=== PATIENT | male | born 1955 | race Caucasian/White ===

== ENCOUNTER 2017-06-05 21:00 | Emergency (ER) | payer BC, MEDICARE ==
[~2017-06-05] VITALS: Ht 177.8 cm; Wt 76.2 kg
[~2017-06-05 21:00] MED LIST: ISENTRESS400 MG ORAL; NORVIR100 MG ORAL; PREZISTA400 MG ORAL; SELZENTRY150 MG ORAL
[2017-06-05 21:05] VITALS: BP 125/73
--- NOTE | 2017-06-05 21:12 | Emergency Room Report ---
History of Present Illness General Chief Complaint: Overdose Source: Patient, Medical Record, EMS Present Illness HPI 70-year-old male, history of HIV, on treatment, unknown last CD4 count, brought by EMS for suicide attempt with Lunesta. Someone called 911, unknown, EMS found patient at home very drowsy. Patient is very drowsy and lethargic however admits to taking 50 Lunesta pills. Unknown number of milligrams, but possibly 1 mg. Patient denies taking any other drugs. There was a suicide note was found, but stated that patient's dog today and that he wanted to join the dog. Currently patient is extremely lethargic, however he is oriented to person and place. Admits to taking the Lunesta pills. However cannot give any more history. He does state that he does not want to live anymore Allergies: Coded Allergies: No Known Allergies (Verified , 05/24/07) Patient History Past Medical History: see triage record Past Surgical History: none Pertinent Family History: none Reviewed Nursing Documentation: PMH: Agreed, PSxH: Agreed Review of Systems All Other Systems: negative except mentioned in HPI Physical Exam Vital Signs Date Time Temp Pulse Resp B/P (MAP) Pulse Ox O2 Delivery O2 Flow Rate FiO2 06/05/17 20:56 97.5 78 16 118/71 98 Room Air 97.5 Sp02 EP Interpretation: reviewed, normal General Appearance: other - Very drowsy middle aged male Head: normocephalic, atraumatic Eyes: bilateral eye normal inspection, bilateral eye PERRL, bilateral eye EOMI ENT: normal ENT inspection, normal pharynx, normal voice, moist mucus membranes Neck: normal inspection, full range of motion, supple Respiratory: normal inspection, lungs clear, normal breath sounds, no respiratory distress, no retraction, no wheezing, speaking full sentences, chest symmetrical Cardiovascular #1: normal inspection, regular rate, rhythm, normal capillary refill Cardiovascular #2: 2+ radial (R), 2+ radial (L) Gastrointestinal: normal inspection, non tender, soft, non-distended, no guarding Genitourinary: no CVA tenderness Musculoskeletal: normal inspection, back normal, normal range of motion, non- tender Neurologic: responsive, sensory intact, other - Very drowsy and lethargic, however oriented to person and place, following directions, answering basic questions Psychiatric: depressed affect, other - SI Skin: normal inspection, normal color, no rash, warm/dry, well hydrated, normal turgor Medical Decision Making Diagnostic Impression: Primary Impression: Drug overdose Additional Impression: Suicidal ideation ER Course 62-year-old male, presenting with overdose with Lunesta DDX: Lunesta overdose, rule out other life-threatening coingestion such as alcohol, salicylate, Tylenol Plan: Obtain labs, ua, ucx, EKG Poison control ER course: Patient has remained stable during ED stay. He has been sleeping, Not hypoxic, protecting airway Discussed with poison control, stated that Lunesta is not a life-threatening overdose however other coingestions must be ruled out patient's sister at bedside, said that patient's dog was like his child. he "threatened" suicide many years ago but otherwise this is not common behavior for him. Patient more awake and alert now, however endorsing SI again. Given ativan/benadryl Patient is medically clear for transfer to psych facility. Disposition: Signed out to Dr. Lopez 62-year-old male, suicide attempt PET eval, admit Please note that this Emergency Department Report was dictated using ExactCostcrusher screen repairer technology software, occasionally this can lead to erroneous entry secondary to interpretation by the dictation equipment EKG Diagnostic Results EP Interpretation: Yes Rate: normal Rhythm: NSR ST Segments: No acute changes ASA given to patient: No Rhythm Strip EP Interpretation: Yes Rate:73 Rhythm: NSR, no PVCs, no ectopy Laboratory Tests Test 06/05/17 21:20 White Blood Count 6.9 K/UL (4.8-10.8) Red Blood Count 4.87 M/UL (4.70-6.10) Hemoglobin 14.6 G/DL (14.2-18.0) Hematocrit 42.6 % (42.0-52.0) Mean Corpuscular Volume 87 FL (80-99) Mean Corpuscular Hemoglobin 29.9 PG (27.0-31.0) Mean Corpuscular Hemoglobin Concent 34.2 G/DL (32.0-36.0) Red Cell Distribution Width 12.1 % (11.6-14.8) Platelet Count 245 K/UL (150-450) Mean Platelet Volume 6.5 FL (6.5-10.1) Neutrophils (%) (Auto) 58.8 % (45.0-75.0) Lymphocytes (%) (Auto) 31.7 % (20.0-45.0) Monocytes (%) (Auto) 7.5 % (1.0-10.0) Eosinophils (%) (Auto) 0.7 % (0.0-3.0) Basophils (%) (Auto) 1.3 % (0.0-2.0) Sodium Level 139 MMOL/L (136-145) Potassium Level 4.5 MMOL/L (3.5-5.1) Chloride Level 104 MMOL/L (98-107) Carbon Dioxide Level 27 MMOL/L (21-32) Anion Gap 8 mmol/L (5-15) Blood Urea Nitrogen 21 mg/dL (7-18) H Creatinine 1.6 MG/DL (0.55-1.30) H Estimate Glomerular Filtration Rate 44.2 mL/min (>60) Glucose Level 133 MG/DL (74-106) H Calcium Level 9.4 MG/DL (8.5-10.1) Total Bilirubin 0.5 MG/DL (0.2-1.0) Aspartate Amino Transferase (AST) 22 U/L (15-37) Alanine Aminotransferase (ALT) 18 U/L (12-78) Alkaline Phosphatase 72 U/L (46-116) Troponin I 0.002 ng/mL (0.000-0.056) Total Protein 7.5 G/DL (6.4-8.2) Albumin 3.8 G/DL (3.4-5.0) Globulin 3.7 g/dL Albumin/Globulin Ratio 1.0 (1.0-2.7) Salicylates Level 1.1 ug/mL (2.8-20) L Acetaminophen Level 8 MCG/ML (10-30) L Serum Alcohol < 3 mg/dL Last Vital Signs Date Time Temp Pulse Resp B/P (MAP) Pulse Ox O2 Delivery O2 Flow Rate FiO2 06/05/17 20:56 97.5 78 16 118/71 98 Room Air 97.5 Disposition: XFER T-TRM HOSP Condition: Serious SabioMichelle M.D. Jun 05, 2017 21:12
[2017-06-05 21:47] LABS: BASOPHILS % (AUTO) 1.3 % (0.0-2.0); EOSINOPHILS % (AUTO) 0.7 % (0.0-3.0); HEMATOCRIT 42.6 % (42.0-52.0); HEMOGLOBIN 14.6 G/DL (14.2-18.0); LYMPHOCYTES % (AUTO) 31.7 % (20.0-45.0); MEAN CORPUSCULAR VOLUME 87 FL (80-99); MONOCYTES % (AUTO) 7.5 % (1.0-10.0); NEUTROPHILS % (AUTO) 58.8 % (45.0-75.0); PLATELET COUNT 245 K/UL (150-450); RED BLOOD COUNT 4.87 M/UL (4.70-6.10); RED CELL DISTRIBUTION WIDTH 12.1 % (11.6-14.8); WHITE BLOOD COUNT 6.9 K/UL (4.8-10.8)
[2017-06-05 22:27] LABS: ANION GAP 8 mmol/L (5-15); BLOOD UREA NITROGEN 21 mg/dL (7-18); CALCIUM 9.4 MG/DL (8.5-10.1); CARBON DIOXIDE 27 MMOL/L (21-32); CHLORIDE 104 MMOL/L (98-107); CREATININE 1.6 MG/DL (0.55-1.30); POTASSIUM 4.5 MMOL/L (3.5-5.1); SODIUM 139 MMOL/L (136-145)
[2017-06-05 22:32] LABS: ALANINE AMINOTRANSFERASE 18 U/L (12-78); ALBUMIN 3.8 G/DL (3.4-5.0); ALKALINE PHOSPHATASE 72 U/L (46-116); ASPARTATE AMINO TRANSFERASE 22 U/L (15-37); BILIRUBIN,TOTAL 0.5 MG/DL (0.2-1.0)
[2017-06-05] MEDS ORDERED: LUNESTA1 MG ORAL (22:32)
[2017-06-05 23:49] VITALS: BP 116/63
[2017-06-06 01:15] VITALS: BP 112/68
[2017-06-06 02:21] VITALS: BP 109/64
[2017-06-06 02:41] LABS: APPEARANCE,URINE CLEAR; BILIRUBIN, URINE NEGATIVE (NEGATIVE); GLUCOSE, URINE (UA) NEGATIVE (NEGATIVE); KETONES,URINE NEGATIVE (NEGATIVE); LEUKOCYTE ESTERASE ,URINE NEGATIVE (NEGATIVE); NITRITE,URINE NEGATIVE (NEGATIVE); PH,URINE 7 (4.5-8.0); PROTEIN,URINE NEGATIVE (NEGATIVE); UROBILINOGEN,URINE NORMAL MG/DL (0.0-1.0)
[2017-06-06 02:45] LABS: COLOR,URINE YELLOW
[2017-06-06 03:30] VITALS: BP 105/56
[2017-06-06] MEDS ORDERED: Haloperidol 5mg/ml Inj IM ONE (04:00)
[2017-06-06] MEDS ORDERED: LORazepam Inj 2mg/ml 1ml IV ONE (04:00)
[2017-06-06] MEDS ORDERED: DiphenhydrAMINE 50mg/ml Inj IVP ONE (04:00)
[2017-06-06 06:00] VITALS: BP 122/66
[2017-06-06 06:58] VITALS: BP 108/51
[2017-06-06] MEDS ORDERED: PREZISTA800 MG ORAL (09:56)
[2017-06-06] MEDS ORDERED: ISENTRESS400 MG ORAL (09:56)
[2017-06-06] MEDS ORDERED: NORVIR100 MG ORAL (09:56)
[2017-06-06] MEDS ORDERED: LUNESTA1 MG ORAL (09:56)
[2017-06-06] MEDS ORDERED: SELZENTRY150 MG ORAL (09:56)
[2017-06-06 11:54] VITALS: BP 108/51
--- NOTE | 2017-06-08 15:10 | Cardiology Report ---
APPROVED REPORT EKG Measurement Heart [id number] Normal sinus rhythm Normal ECG
== END 2017-06-06 12:02 ==
LOC: EDBD 21:00 → EMR 21:37
DX: T42.6X2A Poisoning by other antiepileptic and sedative-hypnotic drugs, intentional self-harm, initial encounter (principal); Y92.9 Unspecified place or not applicable; B20 Human immunodeficiency virus [HIV] disease
CPT/HCPCS: 36415; 80053; 80307; 81003; 84484; 85025; 93005; 96361; 96372; 96374; 96375; 99284; G0480; J1200; J2405; S0028; 80329

== ENCOUNTER 2017-06-18 19:28 | Emergency (ER) | payer BC, MEDICARE ==
[~2017-06-18] VITALS: Ht 177.8 cm; Wt 72.6 kg
[~2017-06-18 19:28] MED LIST changes: +LUNESTA1 MG ORAL; +PREZISTA800 MG ORAL
[2017-06-18 20:00] VITALS: BP 159/85
--- NOTE | 2017-06-18 20:02 | Emergency Room Report ---
History of Present Illness General Chief Complaint: Medication Refill Source: Patient Present Illness HPI 62-year-old male presents to the emergency department requesting refill for Ativan. Patient states he has history of anxiety, PTSD and recent suicide attempt after witnessing his dog getting ran over. Patient denies SI or HI at this time. Patient states he has been trying to contact his site prior chest without success. Patient states that he was previously prescribed low-dose Ativan for several years however he has not been prescribed any recently. Denies drug use. reports rx'd lunesta. Denies CP, Palpitations, LOC, AMS, dizziness, Changes in Vision, Sensation, paresthesias, or a sudden severe headache. Allergies: Coded Allergies: No Known Allergies (Verified , 05/24/07) Patient History Past Medical History: see triage record, psych hx Past Surgical History: none Pertinent Family History: none Reviewed Nursing Documentation: PMH: Agreed, PSxH: Agreed Nursing Documentation-PMH History Of Psychiatric Problem: Yes - depression, ptsd Review of Systems All Other Systems: negative except mentioned in HPI Physical Exam Vital Signs Date Time Temp Pulse Resp B/P (MAP) Pulse Ox O2 Delivery O2 Flow Rate FiO2 06/18/17 19:41 98.1 81 18 159/85 99 Room Air 98.1 Sp02 EP Interpretation: reviewed, normal General Appearance: no apparent distress, alert, GCS 15, non-toxic Head: normocephalic, atraumatic ENT: hearing grossly normal, normal voice Neck: full range of motion Respiratory: lungs clear, normal breath sounds, speaking full sentences Cardiovascular #1: regular rate, rhythm Musculoskeletal: back normal, gait/station normal, normal range of motion, non- tender Neurologic: alert, oriented x3, responsive, motor strength/tone normal, sensory intact, normal gait, speech normal, grossly normal Psychiatric: normal inspection, judgement/insight normal, mood/affect normal, no suicidal/homicidal ideation, anxious Skin: normal color, no rash, warm/dry, well hydrated Medical Decision Making PA Attestation Dr. Ram is my supervising Physician whom patient management has been discussed with. Diagnostic Impression: Primary Impression: Encounter for medication refill ER Course 62-year-old male presents to the emergency department requesting refill for Ativan. Patient states he has history of anxiety, PTSD and recent suicide attempt after witnessing his dog getting ran over. Patient denies SI or HI at this time. Patient states he has been trying to contact his site prior chest without success. Patient states that he was previously prescribed low-dose Ativan for several years however he has not been prescribed any recently. Denies drug use. reports rx'd lunesta. Denies CP, Palpitations, LOC, AMS, dizziness, Changes in Vision, Sensation, paresthesias, or a sudden severe headache. Ddx considered but are not limited to: drug seeking, OD, Si/HI, Anxiety just to name a few. Vital signs: are WNL, pt. is afebrile H&PE are most consistent with non-emergent request for medication refill. ORDERS: none required at this time, the diagnosis is clinical ED INTERVENTIONS: None required at this time. D/w pt. that the Emergency Department only prescribes CONTROLLED SUBSTANCES for acute injuries. There is no evidence of an emergent condition requiring the requested medication refill, and no evidence of an acute injury. Controlled substances are very addictive and require close monitoring when being prescribed controlled substances an outpatient treatment The emergency department is not a resource to be used as outpatient followup, and therefore reserve the regular prescribing, or refill or regularly prescribed controlled substances for your PCP or your chronic pain management provider for your safety -- He was urged to follow up with PRIMARY CARE DOCTOR or [facility] where they can evaluate him, Monitor his condition and safely prescribe any necessary medications that are controlled. DISCHARGE: At this time pt. is stable for d/c to home. Will provide printed patient care instructions, and any necessary prescriptions. Care plan and follow up instructions have been discussed with the patient prior to discharge. Last Vital Signs Date Time Temp Pulse Resp B/P (MAP) Pulse Ox O2 Delivery O2 Flow Rate FiO2 06/18/17 19:41 98.1 81 18 159/85 99 Room Air 98.1 Disposition: HOME, SELF-CARE Condition: Stable Scripts Buspirone Hcl* (BUSPAR*) 10 Mg Tablet 10 MG ORAL THREE TIMES A DAY, #3 TAB 0 Refills Prov: Suzanne Salas P.Karo 06/18/17 Patient Instructions: Medicine Refill at the Emergency Department Additional Instructions: Take medications as directed. Follow up with a Primary Care Provider in 3-5 days, even if your symptoms have resolved. --Please review list of primary care clinics, if you do not already have a primary care provider Return sooner to ED if new symptoms occur, or current symptoms become worse. The Emergency Department only prescribes CONTROLLED SUBSTANCES for acute injuries. There is no evidence of an emergent condition requiring the requested medication refill, and no evidence of an acute injury. Controlled substances are very addictive and require close monitoring when being prescribed controlled substances an outpatient treatment The emergency department is not a resource to be used as outpatient followup, and therefore reserve the regular prescribing, or refill or regularly prescribed controlled substances for your PCP or your chronic pain management provider for your safety -- We urge you to follow up with your PRIMARY CARE DOCTOR who can fully evaluate you , Monitor your condition and safely prescribe any necessary medications that are controlled. - Please note that this Emergency Department Report was dictated using Gigstarterwanigan clerk technology software, occasionally this can lead to erroneous entry secondary to interpretation by the dictation equipment. Suzanne Salas Jun 18, 2017 20:02
[2017-06-18] MEDS ORDERED: BUSPAR10 MG ORAL (20:14)
[2017-06-18 20:28] VITALS: BP 159/85
== END 2017-06-18 20:30 | disposition home or self-care (01) ==
LOC: EMR 19:54
DX: Z76.0 Encounter for issue of repeat prescription (principal); F32.9 Major depressive disorder, single episode, unspecified; F43.10 Post-traumatic stress disorder, unspecified
CPT/HCPCS: 99283

== ENCOUNTER 2017-10-12 07:05 | Emergency (ER) | payer BC, MEDICARE ==
[~2017-10-12] VITALS: Ht 177.8 cm; Wt 70.3 kg
[~2017-10-12 07:05] MED LIST changes: +BUSPAR10 MG ORAL
[2017-10-12 07:22] VITALS: BP 107/62
[2017-10-12] MEDS ORDERED: Sulfacetamide 10% Opth 15ml Btl ONE (07:41)
[2017-10-12] MEDS ORDERED: Tetracaine 0.5% Opth 4ml Soln RIGHT EYE ONE (07:45)
[2017-10-12] MEDS ORDERED: Fluorescein Strips RIGHT EYE ONE (07:45)
--- NOTE | 2017-10-12 07:55 | Emergency Room Report ---
History of Present Illness General Chief Complaint: Eye Problems Source: Patient, Medical Record Present Illness HPI Patient presents with several days of worsening redness of his right eye. Also this morning there was crusting with yellow material that made it difficult to open the eye. He denies any pain. There's been no real change in vision however he still states the mucous sometimes obscures his vision. He denies any fevers or chills. There is no sore throat or runny nose. The patient is HIV positive but states his viral load is negative at this time is on medication. No NVD, dysuria, cough, chest pain, BORGES, extremity pain. Allergies: Coded Allergies: No Known Allergies (Verified , 05/24/07) Patient History Past Medical History: see triage record Social History: Denies: smoking, alcohol use, drug use Social History Narrative from home Reviewed Nursing Documentation: PMH: Agreed; PSxH: Agreed Nursing Documentation-PM Past Medical History: No History, Except For Review of Systems All Other Systems: negative except mentioned in HPI Physical Exam Vital Signs Date Time Temp Pulse Resp B/P (MAP) Pulse Ox O2 Delivery O2 Flow Rate FiO2 10/12/17 07:14 98.1 81 18 107/62 96 Room Air 98.1 General Appearance: well appearing, no apparent distress, GCS 15, non-toxic Head: normocephalic, atraumatic Eyes: right eye fluoroscene uptake - none, right eye Scleral Injection, right eye other - conjunctival ingestion; bilateral eye visual acuity - 20/40 left, 20 /40 right ENT: hearing grossly normal, normal pharynx, normal voice, moist mucus membranes Neck: full range of motion, supple Respiratory: lungs clear, normal breath sounds Cardiovascular #1: normal peripheral pulses Cardiovascular #2: 2+ radial (R) Gastrointestinal: normal inspection, non tender, scaphoid Musculoskeletal: gait/station normal, normal range of motion Neurologic: oriented x3, grossly normal Psychiatric: mood/affect normal Skin: normal inspection, no rash Medical Decision Making Diagnostic Impression: Primary Impression: Bacterial conjunctivitis of right eye ER Course Patient presents with right eye inflammation and crusting. Differential includes viral, bacterial conjunctivitis. We need to use exclude corneal involvement. There is some consideration to that he has HIV however he states that his viral load is negative. This doesn't look gonococcal. There is no preauricular node. There is no fluorocene uptake by the corneas. The patient is started on antibiotics here. He was advised to follow-up with his doctor next week and sooner if the eyes worsening. Patient stable for outpatient observation and treatment Last Vital Signs Date Time Temp Pulse Resp B/P (MAP) Pulse Ox O2 Delivery O2 Flow Rate FiO2 10/12/17 08:28 98.1 87 18 105/57 98 Room Air 98.1 Status: improved Disposition: HOME, SELF-CARE Condition: Improved Scripts Sulfacetamide Sodium (BLEPH-10) 5 Ml Drops 22 DROP OP as directed, #10 ML use q4 hours today then q 6 hours Prov: Nathan Shen M.D. 10/12/17 Nathan Shen M.D. Oct 12, 2017 07:55
[2017-10-12] MEDS ORDERED: BLEPH-105 ML OP (07:59)
[2017-10-12 08:28] VITALS: BP 105/57
[2017-10-12] MEDS ORDERED: Sulfacetamide 10% Opth 15ml Btl RIGHT EYE SCH (09:00)
== END 2017-10-12 08:25 | disposition home or self-care (01) ==
LOC: EMR 07:50
DX: H10.89 Other conjunctivitis (principal); B96.89 Other specified bacterial agents as the cause of diseases classified elsewhere
CPT/HCPCS: 99283